=== PATIENT | female | born 1955 | race Caucasian/White ===

== ENCOUNTER → 2017-05-19 12:06 | Outpatient (CLI) | payer BC ==
[2015-09-18 09:11] VITALS: BMI 33.3
[~2017-05-19 12:06] MED LIST: BAYER CHEWABLE81 MG PO; CYTOMEL5 MCG PO; DEMEROL50 MG PO; LEVOXYL75 MCG PO; MOBIC7.5 MG PO; MULTIPLE VITAMI1 TA1 PO; PRAVACHOL20 MG PO; TIROSINT25 MCG; TIROSINT25 MCG PO
== END | disposition home or self-care (01) ==
LOC: D.OPS 12:06 → D.RAD 13:00 → D.OPS 13:00
DX: M16.0 Bilateral primary osteoarthritis of hip (principal); Z01.812 Encounter for preprocedural laboratory examination

== ENCOUNTER → 2017-06-22 12:49 | Outpatient (CLI) | payer BC ==
[2015-09-18 09:11] VITALS: BMI 33.3
== END | disposition home or self-care (01) ==
LOC: D.MRI 12:49
DX: S83.221A Peripheral tear of medial meniscus, current injury, right knee, initial encounter (principal)

== ENCOUNTER → 2017-11-28 07:18 | Outpatient (CLI) | payer BC ==
[2015-09-18 09:11] VITALS: BMI 33.3
== END | disposition home or self-care (01) ==
LOC: D.SP 07:18 → D.RAD 10:00 → D.SP 10:00
DX: M16.0 Bilateral primary osteoarthritis of hip (principal); Z01.812 Encounter for preprocedural laboratory examination

== ENCOUNTER → 2018-06-26 08:07 | Outpatient (CLI) | payer BC ==
[2015-09-18 09:11] VITALS: BMI 33.3
[2018-06-27 09:17] LABS: HEPATITIS C ANTIBODY <0.1 S/CO RAT (0.0-0.9)
== END | disposition home or self-care (01) ==
LOC: D.US 08:00
PROVIDERS: Internal Medicine Gastroenterology
DX: R79.89 Other specified abnormal findings of blood chemistry (principal); R10.30 Lower abdominal pain, unspecified; R19.4 Change in bowel habit

== ENCOUNTER → 2018-12-18 08:13 | Outpatient (CLI) | payer BC ==
[2015-09-18 09:11] VITALS: BMI 33.3
[2018-12-18 09:30] LABS: ALBUMIN 4.1 g/dL (3.4-5.0); BILIRUBIN - DIRECT 0.2 mg/dL (0.00-0.30); BILIRUBIN - INDIRECT 0.51 mg/dL (0.00-1.00); BILIRUBIN - TOTAL 0.71 mg/dL (0.2-1.3); PROTEIN - SERUM 7.6 g/dL (6.4-8.2)
== END | disposition home or self-care (01) ==
LOC: D.US 08:13
PROVIDERS: ATTEND Internal Medicine Gastroenterology
DX: K76.0 Fatty (change of) liver, not elsewhere classified (principal)

== ENCOUNTER → 2019-06-11 08:07 | Outpatient (CLI) | payer BC ==
[2015-09-18 09:11] VITALS: BMI 33.3
== END | disposition home or self-care (01) ==
LOC: D.MRI 08:07
PROVIDERS: ATTEND Orthopaedic Surgery
DX: S83.231A Complex tear of medial meniscus, current injury, right knee, initial encounter (principal)

== ENCOUNTER → 2019-06-22 07:50 | Outpatient (CLI) | payer BC ==
[2015-09-18 09:11] VITALS: BMI 33.3
[2019-06-22 08:31] LABS: ALBUMIN 3.9 g/dL (3.4-5.0); BILIRUBIN - DIRECT 0.13 mg/dL (0.00-0.30); BILIRUBIN - INDIRECT 0.45 mg/dL (0.00-1.00); BILIRUBIN - TOTAL 0.58 mg/dL (0.2-1.3); PROTEIN - SERUM 7.9 g/dL (6.4-8.2)
== END | disposition home or self-care (01) ==
LOC: D.US 07:50
PROVIDERS: ATTEND Internal Medicine Gastroenterology
DX: K76.0 Fatty (change of) liver, not elsewhere classified (principal)